=== PATIENT | female | born 1950 | race Caucasian/White ===

== ENCOUNTER 2016-11-19 14:38 | Emergency (ER) | payer OTHER ==
--- NOTE | 2016-11-19 16:33 | ED NURSING NOTES ---
Clinical Report - [facility] [address] [place] [address] 11/19/2016 14:37 Patient: JED MORATAYA TRIAGE Triage time 1420. Acuity: LEVEL 3. Chief Complaint: FALL 2-3 FEET OFF A STOOL, onto a carpeted surface and concrete surface and landed on their arms with hands extended; lost balance (playing tamFlyBridGeine, leaned sideways and lost balance. Fell with lt arm outstretched and hit the lt rib cage). Alert. No acute distress. SEPSIS SCREEN: Sepsis Screen: negative. Negative (no infection suspected/documented). MEAGAN COMA SCORE: [place] Coma Scale: 15- eyes open spontaneously (4); best verbal response- oriented x 4 (5); best motor response- obeys commands (6). --14:54 Deyanira Flowers R.N. 14:40 11/19/16. BP: 142/72. HR: 70. RR: 18. O2 saturation: 95% on room air. Temp: 98.7 F. Pain level now: 06/10. --14:54 Deyanira Flowers R.N. Weight: 87.5 kg stated. Height/Length: 67 inches Per Patient. BMI: 30.2. --14:44 Deyanira Flowers R.N. Medications Albuterol. --14:51 Deyanira Flowers R.N. AmLODIPine Besylate Oral 10 mg, daily. Citalopram Hydrobromide Oral (Tablet 40 mg). Fluticasone Furoate Nasal. Furosemide Oral 20 mg. Leflunomide Oral (Tablet 20 mg) 1 tablet. Lisinopril Oral 20 mg, daily. Loperamide HCl Oral. Metoprolol Tartrate Oral 100 mg. Nystatin Oral. Potassium Chloride Oral 10 meq. PredniSONE Oral 10 mg. Qvar Inhalation. Warfarin Sodium Oral (5mg on S// and 2.5 on Sat/Mon/Wed/Fri). --14:51 Deyanira Flowers R.N. Medication/allergy information source: the patient. --14:54 Deyanira Flowers R.N. Allergies Doxycycline Monohydrate. Erythromycin. Penicillins. --14:51 Deyanira Flowers R.N. History Arrived by EMS. Historian: patient. This occurred just prior to arrival. Occurred (evangelical). Limited ROM present in the left shoulder, left upper arm, left elbow, left forearm, left wrist and left hand. No loss of consciousness. No alteration in mental status. Trauma activation: Pre-hospital notification of patient arrival was not received. Treatment CREATIVE SERVICES WRITER: EMS treatment CREATIVE SERVICES WRITER verbally communicated. See EMS report. ( awake and alert). PAST MEDICAL HX: Dementia. Tetanus status: unknown. The patient is post-menopausal. SOCIAL HX: Light tobacco smoker (cigarette)- less than 1/2 a pack per day. No alcohol use or drug use. FALL RISK ASSESSMENT: Fall risk assessment completed. No fall risk identified. NUTRITIONAL RISK ASSESSMENT: The nutritional risk assessment revealed no deficiencies. FUNCTIONAL ASSESSMENT: Functional assessment: no impairments noted. LEARNING NEEDS ASSESSMENT: The learning needs assessment revealed no barriers. SKIN INTEGRITY ASSESSMENT: Skin integrity risk assessment completed. No skin integrity risk identified. --14:54 Deyanira Flowers R.N. PROBLEMS: Fall from chair or bed. Back Pain. CVA - Cerebrovascular Accident. Oral Anticoagulation Therapy. Rectal Bleed. Gerd. Osteoporosis. Emphysema. Peripheral Vascular Disease. Sleep Apnea. Aortic arch dissection. DVT - Deep Venous Thrombosis. DVT/PE Risk Factors. Uterine suspension. Pilonidal Cyst. Hypertension. Vena cava filter. Short bowel syndrome. --14:47 Deyanira Flowers R.N. ADDITIONAL SURGERIES: Bladder Suspension. Bowel Surgery. Cardiac Surgery. --14:47 Deyanira Flowers R.N. Interventions ID band on patient. To room. --14:54 Deyanira Flowers R.N. PHYSICAL ASSESSMENT To room via stretcher. Patient gowned. GENERAL / NEURO / PSYCH: Alert. Oriented X 4. Appears in pain and anxious. HEENT: Head non-tender. RESPIRATORY: Respirations not labored. CVS: Capillary refill less than 2 seconds. GI / : Abdomen nontender. EXTREMITIES: Limited ROM present. Neuro-vascular status intact to the extremity. SKIN: Skin intact. Skin is warm and dry. --14:55 Deyanira Flowers R.N. NURSING PROGRESS NOTES Extremity elevated. Patient gowned. Two patient identifiers checked. Call light placed in reach. Side rails up x 1. Bed placed in lowest position. Brakes of bed on. Patient ready for evaluation. --14:55 Deyanira Flowers R.N. 14:55 11/19/16. BP: 148/92. HR: 66. RR: 18. O2 saturation: 97% on room air. --14:56 Deyanira Flowers R.N. 16:43 11/19/2016 Hydrocodone-APAP (Hydrocodone-Acetaminophen) PO 5 mL given. Allergies verified, confirmed 5 rights and sedative warning given to the patient. --16:48 Deyanira Flowers R.N. DISPOSITION / DISCHARGE Condition at departure: unchanged. No learning barriers present. Reviewed medication(s) side effects, precautions, dosing and course information. Prescription(s) given to the patient. Patient verbalized understanding. Written instructions provided in Thai (Patient given instructions on splinting and deep breathing, and coughing). The patient was discharged home and accompanied by spouse. She left the Emergency Department ambulatory and via private vehicle. Family member driving. Medication list reviewed and validated. --16:50 Deyanira Flowers R.N. 16:48 11/19/16. BP: 137/88. HR: 78. RR: 16. O2 saturation: 98%. Temp: deferred. Pain level now: 04/10. 14:55 11/19/16. BP: 148/92. HR: 66. RR: 18. O2 saturation: 97% on room air. 14:40 11/19/16. BP: 142/72. HR: 70. RR: 18. O2 saturation: 95% on room air. Temp: 98.7 F. Pain level now: 06/10. --16:50 Deyanira Flowers R.N. Locked/Released at 11/19/2016 17:54 by Deyanira Flowers R.N.
--- NOTE | 2016-11-19 16:33 | ED ORDER SUMMARY ---
..... Patient: JED MORATAYA OrderSheet [facility] VisitID: [id number] [address] [place] [address] 66y, F Registration Date/Time: 11/19/2016 ORDER SHEET Weight: 87.5 kg (stated) Allergies: Doxycycline Monohydrate, Erythromycin, Penicillins GENERAL ORDERS: Ribs Unilat w PA Chest Left Urgent (14:52 11/19/2016 Pancho Patel.AShanti-Joon) (Ack 14:55 LTapper) (16:37 SRoberts R.N.) MEDICATION ORDERS: Hydrocodone-APAP PO 5/325 mg (NOW, HIGH ALERT MEDICATION) (16:31 11/19/2016 Pancho Patel.AShanti-Joon) (Ack 16:37 SRoberts R.N.) (16:48 SRoberts R.N.) IV FLUIDS: ORDER SHEET NOTES: [Electronically signed by Deyanira Flowers R.N. (17:54 11/19/2016)] [Electronically signed by Lisa Keenan P.A.-C (23:33 11/19/2016)] [Electronically locked/signed by Deyanira Flowers R.N. (17:54 11/19/2016)]
--- NOTE | 2016-11-19 16:33 | ED CLINICAL REPORT ---
Clinical Report - Physicians/Mid Levels [facility] [address] [place] [address] 11/19/2016 14:37 Patient: JED MORATAYA Time Seen: 1500 Nov 19 2016. Arrived- By ambulance. Historian- patient and EMS personnel. HISTORY OF PRESENT ILLNESS Chief Complaint: FALL. Location of injuries- (left rib). The injury occurred just prior to arrival. Fell. The patient complains of mild pain. No blow to the head, neck pain or loss of consciousness. (patient was sitting in a chair, playing music concert, when the child started to tell, she attempted to grab onto the panel with her right hand, however continued to fall to the left side, left chest area fell onto the floor Denies any LOC injury to the head. Patient is on warfarin, history of DVT and PE. Last PE around 2004. Reports had her warfarin levels checked today, 2.7.). REVIEW OF SYSTEMS No dizziness, hearing loss, weakness or laceration. She has no pain on weight bearing. All systems otherwise negative, except as recorded above. SOCIAL HISTORY Smoker- current status unknown. No alcohol use or drug use. PHYSICAL EXAM Appearance: Alert. No backboard or C-collar. Head: Head non-tender. No swelling of head. ENT: No dental injury. Neck: Painless ROM. Non-tender. No vertebral tenderness. No posterior neck related complaints. CVS: Heart sounds normal. Pulses normal. Respiratory: Chest wall: moderate tenderness located in the middle, central and anterior chest and area of the costal cartilage. No abrasion. No puncture wound. No splinting present. Chest nontender. No chest wall injury. Breast Exam: Furnace Tender present (RN). no rash/ no abrasion. Left Breast: Ecchymosis present. Laceration. Abdomen: No visible injury. Soft. No abdominal tenderness. Back: No tenderness. ROM normal. No tenderness or muscle spasm. Extremities: Normal inspection. Right clavicle area. No tenderness or swelling. Left clavicle area. No tenderness or swelling. Pelvis stable. Neuro: [place] Coma Scale: 15- eyes open spontaneously (4); best verbal response- oriented x 3 (5); best motor response- obeys commands (6). Oriented X 3. LABS, X-RAYS, AND EKG Chest X-ray: (IMPRESSION: 1. Intact left ribs. 2. Normal chest without radiographic evidence of trauma. Electronically Final signed by:Lobo Zarate MD 11/19/2016 5:03:57 PM). PROGRESS AND PROCEDURES Course of Care: He ER patient with no signs of rib fracture, pneumothorax. No other injury, mechanical fall. Stable. No injury to the head or neck or other extremities. To follow up outpatient. Patient is stable. Physical exam findings are improved. Symptoms better. Patient/family counseled. Disposition: Discharged. Condition: good. CLINICAL IMPRESSION Single contusion to the left anterior chest. INSTRUCTIONS (if fevers/ new pain/ new cough return to ER). Prescription Medications: Hydrocodone/APAP 5mg / 325mg: take 1 orally every 6 hours as needed for pain. No refill. Follow-up: Follow up with your doctor in six. (Electronically signed by Lisa Keenan P.A.-C 11/19/2016 23:33)
--- NOTE | 2016-11-19 16:33 | ED ORDER SUMMARY ---
..... Patient: JED MORATAYA OrderSheet [facility] VisitID: [id number] [address] [place] [address] 66y, F Registration Date/Time: 11/19/2016 ORDER SHEET Weight: 87.5 kg (stated) Allergies: Doxycycline Monohydrate, Erythromycin, Penicillins GENERAL ORDERS: Ribs Unilat w PA Chest Left Urgent (14:52 11/19/2016 Pancho Patel.AShanti-Joon) (Ack 14:55 LTapper) (16:37 SRoberts R.N.) MEDICATION ORDERS: Hydrocodone-APAP PO 5/325 mg (NOW, HIGH ALERT MEDICATION) (16:31 11/19/2016 Pancho Patel.AShanti-Joon) (Ack 16:37 SRoberts R.N.) (16:48 SRoberts R.N.) IV FLUIDS: ORDER SHEET NOTES: [Electronically signed by Deyanira Flowers R.N. (17:54 11/19/2016)] [Electronically signed by Lisa Keenan P.A.-C (23:33 11/19/2016)] [Electronically locked/signed by Deyanira Flowers R.N. (17:54 11/19/2016)]
--- NOTE | 2016-11-19 16:33 | ED CLINICAL REPORT ---
Clinical Report - Physicians/Mid Levels [facility] [address] [place] [address] 11/19/2016 14:37 Patient: JED MORATAYA Time Seen: 1500 Nov 19 2016. Arrived- By ambulance. Historian- patient and EMS personnel. HISTORY OF PRESENT ILLNESS Chief Complaint: FALL. Location of injuries- (left rib). The injury occurred just prior to arrival. Fell. The patient complains of mild pain. No blow to the head, neck pain or loss of consciousness. (patient was sitting in a chair, playing music concert, when the child started to tell, she attempted to grab onto the panel with her right hand, however continued to fall to the left side, left chest area fell onto the floor Denies any LOC injury to the head. Patient is on warfarin, history of DVT and PE. Last PE around 2004. Reports had her warfarin levels checked today, 2.7.). REVIEW OF SYSTEMS No dizziness, hearing loss, weakness or laceration. She has no pain on weight bearing. All systems otherwise negative, except as recorded above. SOCIAL HISTORY Smoker- current status unknown. No alcohol use or drug use. PHYSICAL EXAM Appearance: Alert. No backboard or C-collar. Head: Head non-tender. No swelling of head. ENT: No dental injury. Neck: Painless ROM. Non-tender. No vertebral tenderness. No posterior neck related complaints. CVS: Heart sounds normal. Pulses normal. Respiratory: Chest wall: moderate tenderness located in the middle, central and anterior chest and area of the costal cartilage. No abrasion. No puncture wound. No splinting present. Chest nontender. No chest wall injury. Breast Exam: White Sugar Boiler present (RN). no rash/ no abrasion. Left Breast: Ecchymosis present. Laceration. Abdomen: No visible injury. Soft. No abdominal tenderness. Back: No tenderness. ROM normal. No tenderness or muscle spasm. Extremities: Normal inspection. Right clavicle area. No tenderness or swelling. Left clavicle area. No tenderness or swelling. Pelvis stable. Neuro: [place] Coma Scale: 15- eyes open spontaneously (4); best verbal response- oriented x 3 (5); best motor response- obeys commands (6). Oriented X 3. LABS, X-RAYS, AND EKG Chest X-ray: (IMPRESSION: 1. Intact left ribs. 2. Normal chest without radiographic evidence of trauma. Electronically Final signed by:Lobo Zarate MD 11/19/2016 5:03:57 PM). PROGRESS AND PROCEDURES Course of Care: He ER patient with no signs of rib fracture, pneumothorax. No other injury, mechanical fall. Stable. No injury to the head or neck or other extremities. To follow up outpatient. Patient is stable. Physical exam findings are improved. Symptoms better. Patient/family counseled. Disposition: Discharged. Condition: good. CLINICAL IMPRESSION Single contusion to the left anterior chest. INSTRUCTIONS (if fevers/ new pain/ new cough return to ER). Prescription Medications: Hydrocodone/APAP 5mg / 325mg: take 1 orally every 6 hours as needed for pain. No refill. Follow-up: Follow up with your doctor in six. (Electronically signed by Lisa Keenan P.A.-C 11/19/2016 23:33)
--- NOTE | 2016-11-19 16:33 | ED NURSING NOTES ---
Clinical Report - Nurses [facility] [address] [place] [address] 11/19/2016 14:37 Patient: JED MORATAYA TRIAGE Triage time 1420. Acuity: LEVEL 3. Chief Complaint: FALL 2-3 FEET OFF A STOOL, onto a carpeted surface and concrete surface and landed on their arms with hands extended; lost balance (playing [id number], leaned sideways and lost balance. Fell with lt arm outstretched and hit the lt rib cage). Alert. No acute distress. SEPSIS SCREEN: Sepsis Screen: negative. Negative (no infection suspected/documented). MEAGAN COMA SCORE: [place] Coma Scale: 15- eyes open spontaneously (4); best verbal response- oriented x 4 (5); best motor response- obeys commands (6). --14:54 Deyanira Flowers R.N. 14:40 11/19/16. BP: 142/72. HR: 70. RR: 18. O2 saturation: 95% on room air. Temp: 98.7 F. Pain level now: 06/10. --14:54 Deyanira Flowers R.N. Weight: 87.5 kg stated. Height/Length: 67 inches Per Patient. BMI: 30.2. --14:44 Deyanira Flowers R.N. Medications Albuterol. --14:51 Deyanira Flowers R.N. AmLODIPine Besylate Oral 10 mg, daily. Citalopram Hydrobromide Oral (Tablet 40 mg). Fluticasone Furoate Nasal. Furosemide Oral 20 mg. Leflunomide Oral (Tablet 20 mg) 1 tablet. Lisinopril Oral 20 mg, daily. Loperamide HCl Oral. Metoprolol Tartrate Oral 100 mg. Nystatin Oral. Potassium Chloride Oral 10 meq. PredniSONE Oral 10 mg. Qvar Inhalation. Warfarin Sodium Oral (5mg on S// and 2.5 on Sat/Mon/Wed/Fri). --14:51 Deyanira Flowers R.N. Medication/allergy information source: the patient. --14:54 Deyanira Flowers R.N. Allergies Doxycycline Monohydrate. Erythromycin. Penicillins. --14:51 Deyanira Flowers R.N. History Arrived by EMS. Historian: patient. This occurred just prior to arrival. Occurred (orthodox). Limited ROM present in the left shoulder, left upper arm, left elbow, left forearm, left wrist and left hand. No loss of consciousness. No alteration in mental status. Trauma activation: Pre-hospital notification of patient arrival was not received. Treatment INSTRUMENT MECHANICS SUPERVISOR: EMS treatment INSTRUMENT MECHANICS SUPERVISOR verbally communicated. See EMS report. ( awake and alert). PAST MEDICAL HX: Dementia. Tetanus status: unknown. The patient is post-menopausal. SOCIAL HX: Light tobacco smoker (cigarette)- less than 1/2 a pack per day. No alcohol use or drug use. FALL RISK ASSESSMENT: Fall risk assessment completed. No fall risk identified. NUTRITIONAL RISK ASSESSMENT: The nutritional risk assessment revealed no deficiencies. FUNCTIONAL ASSESSMENT: Functional assessment: no impairments noted. LEARNING NEEDS ASSESSMENT: The learning needs assessment revealed no barriers. SKIN INTEGRITY ASSESSMENT: Skin integrity risk assessment completed. No skin integrity risk identified. --14:54 Deyanira Flowers R.N. PROBLEMS: Fall from chair or bed. Back Pain. CVA - Cerebrovascular Accident. Oral Anticoagulation Therapy. Rectal Bleed. Gerd. Osteoporosis. Emphysema. Peripheral Vascular Disease. Sleep Apnea. Aortic arch dissection. DVT - Deep Venous Thrombosis. DVT/PE Risk Factors. Uterine suspension. Pilonidal Cyst. Hypertension. Vena cava filter. Short bowel syndrome. --14:47 Deyanira Flowers R.N. ADDITIONAL SURGERIES: Bladder Suspension. Bowel Surgery. Cardiac Surgery. --14:47 Deyanira Flowers R.N. Interventions ID band on patient. To room. --14:54 Deyanira Flowers R.N. PHYSICAL ASSESSMENT To room via stretcher. Patient gowned. GENERAL / NEURO / PSYCH: Alert. Oriented X 4. Appears in pain and anxious. HEENT: Head non-tender. RESPIRATORY: Respirations not labored. CVS: Capillary refill less than 2 seconds. GI / : Abdomen nontender. EXTREMITIES: Limited ROM present. Neuro-vascular status intact to the extremity. SKIN: Skin intact. Skin is warm and dry. --14:55 Deyanira Flowers R.N. NURSING PROGRESS NOTES Extremity elevated. Patient gowned. Two patient identifiers checked. Call light placed in reach. Side rails up x 1. Bed placed in lowest position. Brakes of bed on. Patient ready for evaluation. --14:55 Deyanira Flowers R.N. 14:55 11/19/16. BP: 148/92. HR: 66. RR: 18. O2 saturation: 97% on room air. --14:56 Deyanira Flowers R.N. 16:43 11/19/2016 Hydrocodone-APAP (Hydrocodone-Acetaminophen) PO 5 mL given. Allergies verified, confirmed 5 rights and sedative warning given to the patient. --16:48 Deyanira Flowers R.N. DISPOSITION / DISCHARGE Condition at departure: unchanged. No learning barriers present. Reviewed medication(s) side effects, precautions, dosing and course information. Prescription(s) given to the patient. Patient verbalized understanding. Written instructions provided in Danish (Patient given instructions on splinting and deep breathing, and coughing). The patient was discharged home and accompanied by spouse. She left the Emergency Department ambulatory and via private vehicle. Family member driving. Medication list reviewed and validated. --16:50 Deyanira Flowers R.N. 16:48 11/19/16. BP: 137/88. HR: 78. RR: 16. O2 saturation: 98%. Temp: deferred. Pain level now: 04/10. 14:55 11/19/16. BP: 148/92. HR: 66. RR: 18. O2 saturation: 97% on room air. 14:40 11/19/16. BP: 142/72. HR: 70. RR: 18. O2 saturation: 95% on room air. Temp: 98.7 F. Pain level now: 06/10. --16:50 Deyanira Flowers R.N. Locked/Released at 11/19/2016 17:54 by Deyanira Flowers R.N.
--- NOTE | 2016-11-19 17:00 | DIAGNOSTIC IMAGING REPORT ---
PROCEDURE: XR RIBS UNILAT W/PA CHEST-LT INDICATION: TRAUMA/INJURY TECHNIQUE: Two views of the left ribs with single PA view chest. COMPARISON: Chest 12/06/2013 FINDINGS: LEFT RIBS: No displaced rib fractures. No suspicious rib lesions. CHEST: Normal cardiomediastinal contour. Clear lungs without pleural effusion, pneumothorax, or contusion. The other visible osseous structures are intact. IMPRESSION: 1. Intact left ribs. 2. Normal chest without radiographic evidence of trauma.
--- NOTE | 2016-11-19 23:34 | ED DISCHARGE INSTRUCTIONS ---
Patient: JED MORATAYA General Instructions [facility] VisitID: [id number] [place] [address] 66y, F Registration Date/Time: 11/19/2016 Single contusion to the left anterior chest. INSTRUCTIONS (if fevers/ new pain/ new cough return to ER). Prescription Medications: Hydrocodone/APAP 5mg / 325mg: take 1 orally every 6 hours as needed for pain. No refill. Follow-up: Follow up with your doctor in six. ADDITIONAL INFORMATION Chest Contusion Acontusion is a bruise to the skin, muscle or ribs. It may cause pain, tenderness, swelling and a purplish discoloration. Contusions take a few days to a few weeks to heal. Home Care: Rest. You should not be doing any heavy lifting or strenuous exertion, or any activity that causes pain. You may use acetaminophen (Tylenol) or ibuprofen (Motrin, Advil) to control pain, unless another pain medicine was prescribed. [ NOTE: If you have chronic liver or kidney disease or ever had a stomach ulcer or GI bleeding, talk with your doctor before using these medicines.] Follow Up with your doctor during the next week or as directed. Get Prompt Medical Attention if any of the following occur: Shortness of breath Increasing chest pain with breathing Dizziness, weakness or fainting New or worsening of abdominal pain Fever of 100.4F (38C) or higher, or as directed by your healthcare provider Hydrocodone Bitartrate, Acetaminophen Oral tablet What is this medicine? ACETAMINOPHEN; HYDROCODONE (a set a HAMMAD viv fen; maryellen droe KOE done) is a pain reliever. It is used to treat mild to moderate pain. How should I use this medicine? Take this medicine by mouth. Swallow it with a full glass of water. Follow the directions on the prescription label. If the medicine upsets your stomach, take the medicine with food or milk. Do not take more than you are told to take. Talk to your revenue field agent regarding the use of this medicine in children. This medicine is not approved for use in children. What side effects may I notice from receiving this medicine? Side effects that you should report to your doctor or health career services director as soon as possible: allergic reactions like skin rash, itching or hives, swelling of the face, lips, or tongue breathing problems confusion feeling faint or lightheaded, falls stomach pain yellowing of the eyes or skin Side effects that usually do not require medical attention (report to your doctor or health career services director if they continue or are bothersome): nausea, vomiting stomach upset What may interact with this medicine? alcohol antihistamines isoniazid medicines for depression, anxiety, or psychotic disturbances medicines for sleep muscle relaxants naltrexone narcotic medicines (opiates) for pain phenobarbital ritonavir tramadol What if I miss a dose? If you miss a dose, take it as soon as you can. If it is almost time for your next dose, take only that dose. Do not take double or extra doses. Where should I keep my medicine? Keep out of the reach of children. This medicine can be abused. Keep your medicine in a safe place to protect it from theft. Do not share this medicine with anyone. Selling or giving away this medicine is dangerous and against the law. Store at room temperature between 15 and 30 degrees C (59 and 86 degrees F). Protect from light. Keep container tightly closed. Throw away any unused medicine after the expiration date. Discard unused medicine and used packaging carefully. Pets and children can be harmed if they find used or lost packages. What should I tell my health care provider before I take this medicine? They need to know if you have any of these conditions: brain tumor Crohn's disease, inflammatory bowel disease, or ulcerative colitis drink more than 3 alcohol-containing drinks per day drug abuse or addiction head injury heart or circulation problems kidney disease or problems going to the bathroom liver disease lung disease, asthma, or breathing problems an unusual or allergic reaction to acetaminophen, hydrocodone, other opioid analgesics, other medicines, foods, dyes, or preservatives or trying to get breast-feeding What should I watch for while using this medicine? Tell your doctor or health career services director if your pain does not go away, if it gets worse, or if you have new or a different type of pain. You may develop tolerance to the medicine. Tolerance means that you will need a higher dose of the medicine for pain relief. Tolerance is normal and is expected if you take the medicine for a long time. Do not suddenly stop taking your medicine because you may develop a severe reaction. Your body becomes used to the medicine. This does NOT mean you are addicted. Addiction is a behavior related to getting and using a drug for a non-medical reason. If you have pain, you have a medical reason to take pain medicine. Your doctor will tell you how much medicine to take. If your doctor wants you to stop the medicine, the dose will be slowly lowered over time to avoid any side effects. You may get drowsy or dizzy when you first start taking the medicine or change doses. Do not drive, use machinery, or do anything that may be dangerous until you know how the medicine affects you. Stand or sit up slowly. There are different types of narcotic medicines (opiates) for pain. If you take more than one type at the same time, you may have more side effects. Give your health care provider a list of all medicines you use. Your doctor will tell you how much medicine to take. Do not take more medicine than directed. Call emergency for help if you have problems breathing. The medicine will cause constipation. Try to have a bowel movement at least every 2 to 3 days. If you do not have a bowel movement for 3 days, call your doctor or health career services director. Too much acetaminophen can be very dangerous. Do not take Tylenol (acetaminophen) or medicines that contain acetaminophen with this medicine. Many non-prescription medicines contain acetaminophen. Always read the labels carefully. You have been given the following additional information: Chest Wall Contusion Hydrocodone Bitartrate, Acetaminophen Oral tablet (Electronically signed by Lisa Keenan P.A.-C 11/19/2016 23:33)
--- NOTE | 2016-11-19 23:34 | ED MED RECONCILIATION SUMMARY ---
Patient: JED MORATAYA Medication Reconciliation Report [facility] VisitID: [id number] [address] [place] [address] 66y, F Registration Date/Time: 11/19/2016 Weight: 87.5 kg Height/Length: 67 in. BMI: 30.2 ALLERGIES: Doxycycline Monohydrate, Erythromycin, Penicillins The patient's Home Medications are listed below: THE FOLLOWING MEDICATIONS NEED TO BE RECONCILED: Albuterol AmLODIPine Besylate Oral 10 mg, daily Citalopram Hydrobromide Oral (40 mg) Fluticasone Furoate Nasal Furosemide Oral 20 mg Leflunomide Oral (20 mg) 1 tablet Lisinopril Oral 20 mg, daily Loperamide HCl Oral Metoprolol Tartrate Oral 100 mg Nystatin Oral Potassium Chloride Oral 10 meq PredniSONE Oral 10 mg Qvar Inhalation Warfarin Sodium Oral, 5mg on // and 2.5 on Sat/Mon/Wed/Fri The source(s) of the original Home Medication information: patient The following Medications were given to the patient in the Emergency Department: Hydrocodone-APAP [PO] PO 5 mL, administered: 11/19/2016 4:43:00 PM The following Medications were prescribed to the patient: Hydrocodone/APAP 5mg / 325mg: take 1 orally every 6 hours as needed for pain. No refill. -- Lisa Keenan P.A.-C
--- NOTE | 2016-11-19 23:34 | ED MAR SUMMARY ---
..... Medication Administration Record [facility] [address] [place] [address] Patient: JED MORATAYA Visit ID: [id number] 66y, F Weight: 87.5 kg Height/Length: 67 in BMI: 30.2 ALLERGIES: Doxycycline Monohydrate, Erythromycin, Penicillins Given 16:43 11/19/2016 Deyanira Flowers R.N. Medication Administered: HYDROCODONE-APAP [PO] (HYDROCODONE-ACETAMINOPHEN), Dose: 5 mL PO. Medication Ordered: Hydrocodone-APAP PO 5/325 mg (NOW, HIGH ALERT MEDICATION).
--- NOTE | 2016-11-19 23:34 | ED DISCHARGE INSTRUCTIONS ---
Patient: JED MORATAYA General Instructions [facility] VisitID: [id number] [place] [address] 66y, F Registration Date/Time: 11/19/2016 Single contusion to the left anterior chest. INSTRUCTIONS (if fevers/ new pain/ new cough return to ER). Prescription Medications: Hydrocodone/APAP 5mg / 325mg: take 1 orally every 6 hours as needed for pain. No refill. Follow-up: Follow up with your doctor in six. ADDITIONAL INFORMATION Chest Contusion Acontusion is a bruise to the skin, muscle or ribs. It may cause pain, tenderness, swelling and a purplish discoloration. Contusions take a few days to a few weeks to heal. Home Care: Rest. You should not be doing any heavy lifting or strenuous exertion, or any activity that causes pain. You may use acetaminophen (Tylenol) or ibuprofen (Motrin, Advil) to control pain, unless another pain medicine was prescribed. [ NOTE: If you have chronic liver or kidney disease or ever had a stomach ulcer or GI bleeding, talk with your doctor before using these medicines.] Follow Up with your doctor during the next week or as directed. Get Prompt Medical Attention if any of the following occur: Shortness of breath Increasing chest pain with breathing Dizziness, weakness or fainting New or worsening of abdominal pain Fever of 100.4F (38C) or higher, or as directed by your healthcare provider Hydrocodone Bitartrate, Acetaminophen Oral tablet What is this medicine? ACETAMINOPHEN; HYDROCODONE (a set a HAMMAD viv fen; maryellen droe KOE done) is a pain reliever. It is used to treat mild to moderate pain. How should I use this medicine? Take this medicine by mouth. Swallow it with a full glass of water. Follow the directions on the prescription label. If the medicine upsets your stomach, take the medicine with food or milk. Do not take more than you are told to take. Talk to your geothermal powerplant mechanic helper regarding the use of this medicine in children. This medicine is not approved for use in children. What side effects may I notice from receiving this medicine? Side effects that you should report to your doctor or health healthcare management as soon as possible: allergic reactions like skin rash, itching or hives, swelling of the face, lips, or tongue breathing problems confusion feeling faint or lightheaded, falls stomach pain yellowing of the eyes or skin Side effects that usually do not require medical attention (report to your doctor or health healthcare management if they continue or are bothersome): nausea, vomiting stomach upset What may interact with this medicine? alcohol antihistamines isoniazid medicines for depression, anxiety, or psychotic disturbances medicines for sleep muscle relaxants naltrexone narcotic medicines (opiates) for pain phenobarbital ritonavir tramadol What if I miss a dose? If you miss a dose, take it as soon as you can. If it is almost time for your next dose, take only that dose. Do not take double or extra doses. Where should I keep my medicine? Keep out of the reach of children. This medicine can be abused. Keep your medicine in a safe place to protect it from theft. Do not share this medicine with anyone. Selling or giving away this medicine is dangerous and against the law. Store at room temperature between 15 and 30 degrees C (59 and 86 degrees F). Protect from light. Keep container tightly closed. Throw away any unused medicine after the expiration date. Discard unused medicine and used packaging carefully. Pets and children can be harmed if they find used or lost packages. What should I tell my health care provider before I take this medicine? They need to know if you have any of these conditions: brain tumor Crohn's disease, inflammatory bowel disease, or ulcerative colitis drink more than 3 alcohol-containing drinks per day drug abuse or addiction head injury heart or circulation problems kidney disease or problems going to the bathroom liver disease lung disease, asthma, or breathing problems an unusual or allergic reaction to acetaminophen, hydrocodone, other opioid analgesics, other medicines, foods, dyes, or preservatives or trying to get breast-feeding What should I watch for while using this medicine? Tell your doctor or health healthcare management if your pain does not go away, if it gets worse, or if you have new or a different type of pain. You may develop tolerance to the medicine. Tolerance means that you will need a higher dose of the medicine for pain relief. Tolerance is normal and is expected if you take the medicine for a long time. Do not suddenly stop taking your medicine because you may develop a severe reaction. Your body becomes used to the medicine. This does NOT mean you are addicted. Addiction is a behavior related to getting and using a drug for a non-medical reason. If you have pain, you have a medical reason to take pain medicine. Your doctor will tell you how much medicine to take. If your doctor wants you to stop the medicine, the dose will be slowly lowered over time to avoid any side effects. You may get drowsy or dizzy when you first start taking the medicine or change doses. Do not drive, use machinery, or do anything that may be dangerous until you know how the medicine affects you. Stand or sit up slowly. There are different types of narcotic medicines (opiates) for pain. If you take more than one type at the same time, you may have more side effects. Give your health care provider a list of all medicines you use. Your doctor will tell you how much medicine to take. Do not take more medicine than directed. Call emergency for help if you have problems breathing. The medicine will cause constipation. Try to have a bowel movement at least every 2 to 3 days. If you do not have a bowel movement for 3 days, call your doctor or health healthcare management. Too much acetaminophen can be very dangerous. Do not take Tylenol (acetaminophen) or medicines that contain acetaminophen with this medicine. Many non-prescription medicines contain acetaminophen. Always read the labels carefully. You have been given the following additional information: Chest Wall Contusion Hydrocodone Bitartrate, Acetaminophen Oral tablet (Electronically signed by Lisa Keenan P.A.-C 11/19/2016 23:33)
--- NOTE | 2016-11-19 23:34 | ED MED RECONCILIATION SUMMARY ---
Patient: JED MORATAYA Medication Reconciliation Report [facility] VisitID: [id number] [address] [place] [address] 66y, F Registration Date/Time: 11/19/2016 Weight: 87.5 kg Height/Length: 67 in. BMI: 30.2 ALLERGIES: Doxycycline Monohydrate, Erythromycin, Penicillins The patient's Home Medications are listed below: THE FOLLOWING MEDICATIONS NEED TO BE RECONCILED: Albuterol AmLODIPine Besylate Oral 10 mg, daily Citalopram Hydrobromide Oral (40 mg) Fluticasone Furoate Nasal Furosemide Oral 20 mg Leflunomide Oral (20 mg) 1 tablet Lisinopril Oral 20 mg, daily Loperamide HCl Oral Metoprolol Tartrate Oral 100 mg Nystatin Oral Potassium Chloride Oral 10 meq PredniSONE Oral 10 mg Qvar Inhalation Warfarin Sodium Oral, 5mg on // and 2.5 on Sat/Mon/Wed/Fri The source(s) of the original Home Medication information: patient The following Medications were given to the patient in the Emergency Department: Hydrocodone-APAP [PO] PO 5 mL, administered: 11/19/2016 4:43:00 PM The following Medications were prescribed to the patient: Hydrocodone/APAP 5mg / 325mg: take 1 orally every 6 hours as needed for pain. No refill. -- Lisa Keenan P.A.-C
--- NOTE | 2016-11-19 23:34 | ED MAR SUMMARY ---
..... Medication Administration Record [facility] [address] [place] [address] Patient: JED MORATAYA Visit ID: [id number] 66y, F Weight: 87.5 kg Height/Length: 67 in BMI: 30.2 ALLERGIES: Doxycycline Monohydrate, Erythromycin, Penicillins Given 16:43 11/19/2016 Deyanira Flowers R.N. Medication Administered: HYDROCODONE-APAP [PO] (HYDROCODONE-ACETAMINOPHEN), Dose: 5 mL PO. Medication Ordered: Hydrocodone-APAP PO 5/325 mg (NOW, HIGH ALERT MEDICATION).
== END 2016-11-19 16:50 | disposition home or self-care (01) ==
LOC: ED SRH 14:38
DX: S20.212A Contusion of left front wall of thorax, initial encounter (principal); W07.XXXA Fall from chair, initial encounter; Y93.89 Activity, other specified; Y92.9 Unspecified place or not applicable; Y99.9 Unspecified external cause status; Z79.01 Long term (current) use of anticoagulants; Z86.711 Personal history of pulmonary embolism; Z86.718 Personal history of other venous thrombosis and embolism; F17.200 Nicotine dependence, unspecified, uncomplicated